=== PATIENT | male | born 1985 | race Two or more races ===

== ENCOUNTER 2016-09-07 22:02 | Emergency (ER) | payer MEDICAID ==
[~2016-09-07] VITALS: Ht 175.3 cm; Wt 145.1 kg
[2016-09-07 22:32] VITALS: BP 136/70
== END 2016-09-08 02:00 | disposition home or self-care (01) ==
LOC: ER 22:05
DX: I88.9 Nonspecific lymphadenitis, unspecified (principal); E78.5 Hyperlipidemia, unspecified
CPT/HCPCS: 76881; 81002

== ENCOUNTER 2019-01-23 06:33 | Emergency (ER) | payer MEDICAID ==
[~2019-01-23] VITALS: Ht 175.3 cm; Wt 147.9 kg
[2019-01-23 07:41] VITALS: BP 159/85
== END 2019-01-23 09:03 | disposition home or self-care (01) ==
LOC: ER 06:33
DX: F41.9 Anxiety disorder, unspecified (principal); H92.02 Otalgia, left ear; E78.5 Hyperlipidemia, unspecified; F12.10 Cannabis abuse, uncomplicated; F15.10 Other stimulant abuse, uncomplicated
CPT/HCPCS: 70450

== ENCOUNTER 2021-09-13 19:24 | Emergency (ER) | payer MEDICAID | END 2021-09-13 20:35 | disposition left against medical advice (07) | LOC: ER 19:24 | DX: S91.301A Unspecified open wound, right foot, initial encounter (principal); Z53.21 Procedure and treatment not carried out due to patient leaving prior to being seen by health care provider; X58.XXXA Exposure to other specified factors, initial encounter; Y93.89 Activity, other specified; Y92.89 Other specified places as the place of occurrence of the external cause; Y99.8 Other external cause status ==